=== PATIENT | female | born 1995 | race Caucasian/White ===

== ENCOUNTER 2017-06-02 10:27 | Emergency (ER) | payer BC ==
--- NOTE | 2017-06-02 10:47 | EDM.PDOC ---
ED HPI GENERAL MEDICAL PROBLEM - General Stated Complaint: POSS MISSCARRIAGE Time Seen by Provider: 06/02/17 10:27 Source of Information: Reports: Patient, Family History Limitations: Reports: No Limitations - History of Present Illness INITIAL COMMENTS - FREE TEXT/NARRATIVE: 22 y.o.wf came to the ed after she passed tissue through her vagina. Pt was seen yesterday at [facility] where a OB US was performed. There were no heart tomes. Pt ad severe pelvic pain at that time. After the patient past the tissues this morning, pt was entirely pain free. She came to the ed because she has some vag bleed. No N/V/D or any acute medical issues. This was the patient 2nd miscarriage. BP 123/77 36.1 Pulse ox 99 pulse 83 temp 36.3 Onset: Today Onset Date: 06/02/17 Onset Time: 07:00 Duration: Hour(s): Location: Reports: Pelvis Quality: Reports: Other (vag bleed) Improves with: Reports: Rest Worsens with: Reports: Movement Associated Symptoms: Reports: No Other Symptoms - Related Data Allergies Allergy/AdvReac Type Severity Reaction Status Date / Time amoxicillin trihydrate Allergy Cannot Verified 06/02/17 11:08 [From Augmentin] Remember Penicillins Allergy Cannot Verified 06/02/17 11:08 Remember potassium clavulanate Allergy Cannot Verified 06/02/17 11:08 [From Augmentin] Remember Home Meds: Home Meds Vits #93/Iron Fum/FA [ Formula Tablet] 1 tab PO DAILY 06/02/17 [History] Past Medical History Other OB/BYN History: BREAST SURGERY FOR FAT TISSUE REMOVAL Psychiatric History: Reports: Anxiety, Depression - Past Surgical History HEENT Surgical History: Reports: Tonsillectomy Social & Family History - Family History Family Medical History: Noncontributory - Tobacco Use Smoking Status *Q: Current Every Day Smoker Years of Tobacco use: 3 Packs/Tins Daily: 0.4 - Caffeine Use Caffeine Use: Reports: Coffee, Energy Drinks, Soda, Tea - Recreational Drug Use Recreational Drug Use: No ED ROS GENERAL - Review of Systems Review Of Systems: See Below Constitutional: Reports: No Symptoms HEENT: Reports: No Symptoms Respiratory: Reports: No Symptoms Cardiovascular: Reports: No Symptoms Endocrine: Reports: No Symptoms GI/Abdominal: Reports: No Symptoms : Reports: Other (vag bleed) Musculoskeletal: Reports: No Symptoms Skin: Reports: No Symptoms Neurological: Reports: No Symptoms Psychiatric: Reports: No Symptoms Hematologic/Lymphatic: Reports: No Symptoms Immunologic: Reports: No Symptoms ED EXAM, RENAL/ - Physical Exam Exam: See Below Exam Limited By: No Limitations General Appearance: Alert, WD/WN, No Apparent Distress Eye Exam: Bilateral Eye: Normal Inspection Ears: Normal External Exam Nose: Normal Inspection Throat/Mouth: Normal Inspection Head: Atraumatic, Normocephalic Neck: Normal Inspection, Supple, Non-Tender, Full Range of Motion Respiratory/Chest: No Respiratory Distress, Lungs Clear, Normal Breath Sounds Cardiovascular: Normal Peripheral Pulses, Regular Rate, Rhythm, No Edema GI/Abdominal: Normal Bowel Sounds, Soft, Non-Tender (Female) Exam: Normal External Exam, Normal Bimanual Exam, Vaginal Bleeding ( minor) Rectal (Female) Exam: Deferred Back Exam: Normal Inspection, Full Range of Motion Extremities: Normal Inspection, Normal Range of Motion, Non-Tender, No Pedal Edema Neurological: Alert, Oriented, CN II-XII Intact, Normal Cognition, Normal Gait Psychiatric: Normal Affect, Normal Mood Skin Exam: Warm, Dry, Intact, Normal Color, No Rash Lymphatic: No Adenopathy Course - Vital Signs Text/Narrative:: 22 y.o.wf came to the ed after she passed tissue through her vagina. Pt was seen yesterday at [facility] where a OB US was performed. There were no heart tomes. Pt ad severe pelvic pain at that time. After the patient past the tissues this morning, pt was entirely pain free. She came to the ed because she has some vag bleed. No N/V/D or any acute medical issues. This was the patient 2nd miscarriage. BP 123/77 36.1 Pulse ox 99 pulse 83 temp 36.3 PE: Pelvic exam: Minor cervical bleed s/o miscarriage, no dizziness, lightheadedness, is basically in her usual state of william. Imaging: OB U/S: No fetus, no retained placenta, Uterus is "empty", official report is pending Impression: Complete miscarriage Reexam: Improved, no pain, minor vaginal bleed Plan: D/C with instructions Last Recorded V/S: Last Vital Signs Temp 36.8 C 06/02/17 10:27 Pulse 80 06/02/17 12:06 Resp 16 06/02/17 12:06 BP 120/62 06/02/17 12:06 Pulse Ox 100 06/02/17 12:06 - Orders/Labs/Meds Orders: Active Orders 24 hr Category Date Time Status OB 1st Tri Sgl 1st Gest [US] Stat Exams 06/02/17 11:00 Ordered OB Transvaginal [US] Stat Exams 06/02/17 11:00 Taken Labs: Laboratory Tests 06/02/17 Range/Units 10:47 Urine Color Red (YELLOW) Urine Appearance Cloudy (CLEAR) Urine pH 6.0 (5.0-6.5) Ur Specific Seth 1.010 (1.010-1.025) Urine Protein Negative (NEGATIVE) mg/dL Urine Glucose (UA) Normal (NEGATIVE) mg/dL Urine Ketones Negative (NEGATIVE) mg/dL Urine Occult Blood Large H (NEGATIVE) Urine Nitrite Negative (NEGATIVE) Urine Bilirubin Negative (NEGATIVE) Urine Urobilinogen Normal (NEGATIVE) mg/dL Ur Leukocyte Esterase Negative (NEGATIVE) Urine RBC >100 H (0) Urine WBC 0-5 (0) Ur Squamous Epith Cells Few H (NS,R,O) Urine Bacteria Few H (NS) Departure - Departure Time of Disposition: 12:08 Disposition: Home, Self-Care 01 Condition: Good Clinical Impression: Complete miscarriage - Discharge Information Instructions: Miscarriage, [id number] Referrals: Chasidy Go PA [Primary Care Provider] - Forms: ED Department Discharge Additional Instructions: Please take Motrin for pain, please f/u, come back if your symptoms get worse acutely - My Orders Last 24 Hours: My Active Orders 06/02/17 11:00 OB Tri Sgl 1st Gest [US] Stat OB Transvaginal [US] Stat - Assessment/Plan Last 24 Hours: My Active Orders 06/02/17 11:00 OB Tri Sgl 1st Gest [US] Stat OB Transvaginal [US] Stat
[2017-06-02 12:07] VITALS: BP 120/62
--- NOTE | 2017-06-04 15:09 | US ---
INDICATION: Had possible miscarriage this a.m. Vaginal bleeding with clots. OB ULTRASOUND FIRST TRIMESTER, LIMITED: Multiple ultrasonic images were obtained with transabdominal probe. The uterus is not adequately visualized. No definite adnexal mass lesions or free fluid collections were identified. IMPRESSION: Limited study. Need endovaginal probe ultrasound for further evaluation. INDICATION: Possible miscarriage, need better visualization of the endometrial cavity than was possible with the transabdominal probe. OB ULTRASOUND TRANSVAGINAL: Utilizing transvaginal probe, multiple ultrasonic images revealed the right ovary to measure 1.67 x 1.56 x 1.29 cm. The left ovary measured 4.32 x 2.79 x 2.76 cm. The right ovary was unremarkable. The left showed evidence of a small cyst of approximately 2.5 cm. The endometrial cavity appeared fairly small in thickness with no evidence of an intrauterine gestational sac. The uterus was retroflexed. At the left ovary, what likely represents a corpus luteum cyst is noted. There appears to be some free fluid adjacent to it. It measured approximately 32 x 38 mm. Other follicles are noted in the left ovary. The right ovary was unremarkable. No adnexal mass lesions or free fluid collections were identified. IMPRESSION: 1. No evidence of an intrauterine gestation is identified. 2. Probable physiologic cyst almost 4 cm at the left ovary. MTDD
== END 2017-06-02 12:10 | disposition home or self-care (01) ==
LOC: FB.ED 10:27
DX: O03.9 Complete or unspecified spontaneous abortion without complication (principal); F17.210 Nicotine dependence, cigarettes, uncomplicated; Z88.1 Allergy status to other antibiotic agents; Z88.0 Allergy status to penicillin; Z88.8 Allergy status to other drugs, medicaments and biological substances
CPT/HCPCS: 76815; 76817; 81001; 99284

== ENCOUNTER 2017-11-03 04:52 | Emergency (ER) | payer BC ==
[2017-11-03] MEDS ORDERED: Ketorolac 30 MG/ML SDV IVPUSH ONE (05:23)
[2017-11-03] MEDS ORDERED: Metoclopramide 10 MG/2 ML SDV IVPUSH ONE (05:23)
[2017-11-03] MEDS ORDERED: diphenhydrAMINE 50 MG/ML SDV IVPUSH ONE (05:23)
[2017-11-03] MEDS ORDERED: Sodium Chloride 0.9% 1,000 ML IV SCH (05:30)
[2017-11-03 05:49] VITALS: BP 109/58
--- NOTE | 2017-11-03 08:31 | ER ---
DATE SEEN: 11/03/2017 CHIEF COMPLAINT: Vomiting and headache. HISTORY OF PRESENT ILLNESS: A 22-year-old female who is currently at around 12 weeks. She complains of a headache that started about 0200 hours, [id number] pain, consistent with her usual migraine attacks. Previously I had seen her in the office for -related headache and migraine and I had put her on Tylenol No.3 only to use as needed. She was unable to tolerate this because of vomiting today. No fevers reported. REVIEW OF SYSTEMS: No urinary symptoms, fever, chills. No chest pain or shortness of breath. PAST MEDICAL HISTORY: Suicidal thoughts, miscarriage. ALLERGIES: Please see the nurse's notes and the electronic record. PHYSICAL EXAMINATION: GENERAL: She is not in distress. VITAL SIGNS: As follows. Blood pressure 109/58, pulse is 79, temperature is 98.5. ENT: Negative. Oropharynx is clear. EYES: Pupils are equal and reactive. CHEST: Clear. MENTAL STATUS: Alert. LABORATORY DATA: CBC and basic profile are normal. IMPRESSION: Headache in . PLAN: Since she is unable to tolerate oral medications and because of vomiting, I recommended an IV Reglan, Benadryl, and Toradol. I also recommended 1 L of normal saline. Apparently when the nurse attempted an IV line, the patient declined and refused because of the pain. She stated that she would rather have an oral medicine. I felt that an oral medicine would not be ideal, especially because she had been vomiting and at which point, she preferred to go to [place]. She was discharged to follow up in [place] or return to her PCP for further treatment. /[id number] GO/ARCELIA
== END 2017-11-03 05:45 | disposition home or self-care (01) ==
LOC: FB.ED 04:52
DX: O99.89 Other specified diseases and conditions complicating pregnancy, childbirth and the puerperium (principal); R51 Headache; Z3A.12 12 weeks gestation of pregnancy
CPT/HCPCS: 36415; 80048; 85025; 99283